=== PATIENT | male | born 2000 | race American Indian/Alaskan Native ===

== ENCOUNTER 2022-01-12 11:06 | Emergency (ER) | payer SELFPAY ==
[2022-01-12] MEDS ORDERED: IBUPROFEN 600 MG TAB PO ONE (20:39)
[2022-01-12] MEDS ORDERED: AMOXICILLIN/K CLAV 875/125MG TAB PO ONE (20:39)
[2022-01-12] MEDS ORDERED: LIDOCAINE VISCOUS 2% 15 ML ORAL LIQD PO ONE (20:39)
--- NOTE | 2022-01-12 21:07 | Emergency Department Report ---
ED General Adult HPI - General Chief complaint: Sore Throat Stated complaint: SWOLLEN GUMS/SORE THROAT Source: patient Mode of arrival: Ambulatory Limitations: No Limitations - History of Present Illness Initial comments: Patient is a 22-year-old -[place] male with no past medical history who presents to the ED with complaint of acute onset persistent sore throat, left mandibular pain and swelling, left and develop premolar and molar tooth ache for the last 4 days. Patient states that the pain has been constant and persistent and especially worse with chewing or swallowing food. Patient denies dizziness, syncope, fever, chills, nausea and vomiting, diarrhea, dysuria, urinary frequency and urgency, headache, cough, or abdominal pain. MD Complaint: sore throat; swollen left mandibular gingiva; dental pain -: Sudden, days(s) (4) Location: mouth Radiation: non-radiation Severity scale (0 -10): 7 Quality: aching, sharp Consistency: constant Improves with: none Worsens with: eating Associated Symptoms: denies other symptoms. denies: confusion, chest pain, cough, diaphoresis, fever/chills, headaches, loss of appetite, malaise, nausea/vomiting, rash, seizure, shortness of breath, syncope, weakness, other Treatments Prior to Arrival: none - Related Data Previous Rx's Medication Instructions Recorded Last Taken Type Ibuprofen [Motrin] 600 mg PO Q8H PRN #30 tablet 01/12/22 Unknown Rx clindamycin HCL [Clindamycin HCl] 300 mg PO Q6H #40 cap 01/12/22 Unknown Rx traMADoL [Ultram] 50 mg PO Q6HR PRN #12 tablet 01/12/22 Unknown Rx Allergies Allergy/AdvReac Type Severity Reaction Status Date / Time No Known Allergies Allergy Unverified 01/12/22 11:50 ED Review of Systems ROS: Stated complaint: SWOLLEN GUMS/SORE THROAT Other details as noted in HPI Constitutional: denies: chills, fever Eyes: denies: eye pain, eye discharge, vision change ENT: throat pain, dental pain, other (swollen left mandibular gingiva; dental pain). denies: ear pain Respiratory: denies: cough, shortness of breath, SOB with exertion, SOB at rest, wheezing Cardiovascular: denies: chest pain, palpitations Endocrine: no symptoms reported Gastrointestinal: denies: abdominal pain, nausea, vomiting, diarrhea Genitourinary: denies: urgency, dysuria Musculoskeletal: denies: back pain, joint swelling, arthralgia Skin: denies: rash, lesions Neurological: denies: headache, weakness, paresthesias Psychiatric: denies: anxiety, depression Hematological/Lymphatic: denies: easy bleeding, easy bruising ED Past Medical Hx - Past Medical History Previous Medical History?: No - Surgical History Past Surgical History?: No - Medications Home Medications: Home Medications Medication Instructions Recorded Confirmed Last Taken Type Ibuprofen [Motrin] 600 mg PO Q8H PRN #30 tablet 01/12/22 Unknown Rx clindamycin HCL [Clindamycin HCl] 300 mg PO Q6H #40 cap 01/12/22 Unknown Rx traMADoL [Ultram] 50 mg PO Q6HR PRN #12 tablet 01/12/22 Unknown Rx ED Physical Exam - General Limitations: No Limitations General appearance: alert, in no apparent distress - Head Head exam: Present: atraumatic, normocephalic, normal inspection - Eye Eye exam: Present: normal appearance, PERRL, EOMI Pupils: Present: normal accommodation - ENT ENT exam: Present: mucous membranes moist, TM's normal bilaterally, other (Mild erythematous oropharynx; palpable left mandibular gingival tenderness and swelling; left mandibular premolar and molar teeth tenderness) - Neck Neck exam: Present: normal inspection, full ROM. Absent: tenderness, lymphadenopathy - Respiratory Respiratory exam: Present: normal lung sounds bilaterally. Absent: respiratory distress, wheezes, rales, rhonchi, stridor, chest wall tenderness, accessory muscle use, decreased breath sounds, prolonged expiratory - Cardiovascular Cardiovascular Exam: Present: regular rate, normal rhythm, normal heart sounds. Absent: systolic murmur, diastolic murmur, rubs, gallop - GI/Abdominal GI/Abdominal exam: Present: soft, normal bowel sounds. Absent: tenderness, guarding, rebound, rigid, hyperactive bowel sounds, hypoactive bowel sounds, organomegaly - Extremities Exam Extremities exam: Present: normal inspection, full ROM, normal capillary refill. Absent: tenderness, pedal edema, joint swelling - Back Exam Back exam: Present: normal inspection, full ROM. Absent: tenderness, CVA tenderness (R), CVA tenderness (L), muscle spasm, paraspinal tenderness, vertebral tenderness - Neurological Exam Neurological exam: Present: alert, oriented X3, CN II-XII intact, normal gait, reflexes normal - Psychiatric Psychiatric exam: Present: normal affect, normal mood - Skin Skin exam: Present: warm, dry, intact, normal color. Absent: rash ED Course Vital Signs 01/12/22 11:49 Temperature 98.5 F Pulse Rate 83 Respiratory 18 Rate Blood Pressure 119/65 [Left] O2 Sat by Pulse 99 Oximetry ED Medical Decision Making - Medical Decision Making This is a 22-year-old -[place] male with no past medical history who presents to the ED with complaint of acute onset persistent sore throat, left mandibular pain and swelling, left and develop premolar and molar tooth ache for the last 4 days. Patient states that the pain has been constant and persistent and especially worse with chewing or swallowing food. In the ED, patient is alert and oriented x3 and is not in any distress. Patient is hemodynamically stable. Patient was treated in the ED for pain and also discharged home on medications. Patient is advised return to the ED immediately if symptoms get worse. Patient was also advised to ensure that he follows up with his dentist and primary care physician in 7 to 10 days for reevaluation. - Differential Diagnosis gingivitis; tonsillitis; pharyngitis; dental abscess Critical care attestation.: If time is entered above; I have spent that time in minutes in the direct care of this critically ill patient, excluding procedure time. ED Disposition Clinical Impression: Dental abscess, Acute gingivitis Acute pharyngitis Qualifiers: Pharyngitis/tonsillitis etiology: other specified organisms Qualified Code(s): J02.8 - Acute pharyngitis due to other specified organisms Disposition: 01 HOME / SELF CARE / HOMELESS Is pt being admited?: No Does the pt Need Aspirin: No Condition: Stable Instructions: Dental Abscess, [id number], Pharyngitis, [id number], Sore Throat, [id number], Trench Mouth Additional Instructions: Take medication with food, drink plenty of fluids, follow-up with your primary care physician in 7 to 10 days for reevaluation. Return to the ED immediately if symptoms get worse. Prescriptions: clindamycin HCL [Clindamycin HCl] 300 mg PO Q6H #40 cap Ibuprofen [Motrin] 600 mg PO Q8H PRN #30 tablet PRN Reason: Pain traMADoL [Ultram] 50 mg PO Q6HR PRN #12 tablet PRN Reason: Pain Referrals: CAMELIA NICOLAS MD [Primary Care Provider] - 7-10 days Forms: Work/School Release Form(ED) Time of Disposition: 21:07 Print Language: BELARUSIAN
[2022-01-12 22:39] VITALS: BP 124/67
== END 2022-01-12 22:39 | disposition home or self-care (01) ==
LOC: ED 11:06
DX: K04.7 Periapical abscess without sinus (principal); K05.00 Acute gingivitis, plaque induced; J02.8 Acute pharyngitis due to other specified organisms
CPT/HCPCS: 99282

== ENCOUNTER 2022-01-18 17:58 | Emergency (ER) | payer SELFPAY ==
[2022-01-18] MEDS ORDERED: dexAMETHasone 4 MG/ML VIAL PO ONE (22:51)
[2022-01-18] MEDS ORDERED: PENICILLIN G BENZATHINE 1.2 MILLION UNIT/2 ML INJ IM STA (22:51)
[2022-01-18] MEDS ORDERED: ACETAMINOPEN W/CODEINE 120-12MG ORAL LIQD 5 ML PO STA (22:51)
--- NOTE | 2022-01-19 01:32 | Emergency Department Report ---
ED General Adult HPI - General Chief complaint: Sore Throat Stated complaint: GENERAL ILLNESS Time Seen by Provider: 01/18/22 22:21 Source: patient Mode of arrival: Ambulatory Limitations: No Limitations - History of Present Illness Initial comments: 22-year-old male is emerged from complaint of continued sore throat despite taking the beginning his initial round of therapy. Pain is dull throbbing is worse with palpation swallowing talking and eating. Reports no fever, chills, sweats. No hemoptysis or hematemesis and hematochezia. No nausea or vomiting. -: Gradual (1 week) Severity scale (0 -10): 10 Consistency: constant Improves with: none Worsens with: eating Associated Symptoms: denies: confusion, cough, diaphoresis, loss of appetite, malaise, nausea/vomiting - Related Data Previous Rx's Medication Instructions Recorded Last Taken Type Ibuprofen [Motrin] 600 mg PO Q8H PRN #30 tablet 01/12/22 Unknown Rx clindamycin HCL [Clindamycin HCl] 300 mg PO Q6H #40 cap 01/12/22 Unknown Rx traMADoL [Ultram] 50 mg PO Q6HR PRN #12 tablet 01/12/22 Unknown Rx Nystas/Diphen/Xyl Visc/Mylanta 20 ml MM QID PRN #560 ml 01/19/22 Unknown Rx [Magic Mouthwash] Allergies Allergy/AdvReac Type Severity Reaction Status Date / Time No Known Allergies Allergy Unverified 01/12/22 11:50 ED Review of Systems ROS: Stated complaint: GENERAL ILLNESS Other details as noted in HPI Comment: All other systems reviewed and negative ED Past Medical Hx - Past Medical History Previous Medical History?: No - Surgical History Past Surgical History?: Yes Additional Surgical History: bilateral eyes sx - Medications Home Medications: Home Medications Medication Instructions Recorded Confirmed Last Taken Type Ibuprofen [Motrin] 600 mg PO Q8H PRN #30 tablet 01/12/22 Unknown Rx clindamycin HCL [Clindamycin HCl] 300 mg PO Q6H #40 cap 01/12/22 Unknown Rx traMADoL [Ultram] 50 mg PO Q6HR PRN #12 tablet 01/12/22 Unknown Rx Nystas/Diphen/Xyl Visc/Mylanta 20 ml MM QID PRN #560 ml 01/19/22 Unknown Rx [Magic Mouthwash] ED Physical Exam - General Limitations: No Limitations General appearance: alert, in no apparent distress - Head Head exam: Present: atraumatic, normocephalic - Eye Eye exam: Present: normal appearance - ENT ENT exam: Present: mucous membranes moist, other (Pharynx is red with some swelling and exudate noted. At that there is an aphthous ulcer just located just proximal to the uvula. There is some exudate and an ulcerative lesions to the posterior aspect of the uvula as well. Speech is normal no drooling. Bilateral tonsillar lymphadenopathy is pres) - Neck Neck exam: Present: normal inspection, lymphadenopathy - Respiratory Respiratory exam: Present: normal lung sounds bilaterally. Absent: respiratory distress - Cardiovascular Cardiovascular Exam: Present: regular rate, normal rhythm. Absent: systolic murmur, diastolic murmur, rubs, gallop - GI/Abdominal GI/Abdominal exam: Present: soft, normal bowel sounds - Rectal Rectal exam: Present: deferred - Extremities Exam Extremities exam: Present: normal inspection - Back Exam Back exam: Present: normal inspection - Neurological Exam Neurological exam: Present: alert, oriented X3 - Psychiatric Psychiatric exam: Present: normal affect, normal mood - Skin Skin exam: Present: warm, dry, intact, normal color. Absent: rash ED Course Vital Signs 01/18/22 01/18/22 20:16 23:17 Temperature 98.9 F Pulse Rate 81 Respiratory 16 16 Rate Blood Pressure 101/63 [Right] O2 Sat by Pulse 100 Oximetry ED Medical Decision Making - Medical Decision Making 22-year-old with no history of any compromised nontoxic appearance patient is euvolemic with no trismus no airway compromise unable to tolerate p.o. given history and examination low suspicion for this presentation being caused by peritonsillar abscess, Jeremy, bacterial tracheitis, acute HIV, epiglottitis, retropharyngeal abscess. Critical care attestation.: If time is entered above; I have spent that time in minutes in the direct care of this critically ill patient, excluding procedure time. ED Disposition Clinical Impression: Aphthous ulcer, Exudative pharyngitis Disposition: HOME / SELF CARE / HOMELESS Is pt being admited?: No Does the pt Need Aspirin: No Condition: Stable Instructions: Oral Ulcers, Canker Sores, Sore Throat Prescriptions: Nystas/Diphen/Xyl Visc/Mylanta [Magic Mouthwash] 20 ml MM QID PRN #560 ml PRN Reason: oral pain and rash Referrals: CAMELIA NICOLAS MD [Primary Care Provider] - 3-5 Days
[2022-01-19 01:36] VITALS: BP 116/69
== END 2022-01-19 01:36 | disposition home or self-care (01) ==
LOC: ED 17:58
DX: J06.9 Acute upper respiratory infection, unspecified (principal); K12.0 Recurrent oral aphthae
CPT/HCPCS: 96372; 99282; J0561; J1100